=== PATIENT | male | born 1995 ===

== ENCOUNTER 2025-08-09 10:03 | Outpatient (AMB) | payer OTHER, SELFPAY ==
--- NOTE | 2025-08-09 10:12 | A.OFFVIS_ITS ---
Intake Visit Reasons: migraine Allergies amoxicillin Allergy (Unknown, Verified 08/05/25 10:57) Unknown Medication List - Last Reconciled 08/09/25 by Mariya Mendoza MD sumatriptan succinate mg PO HPI Comments Details: 29 yr old man with h/o migraine. Currently getting 1/ wk or every 2 weeks. Sumatriptan works well in 2 hrs. They can be triggered by lack of sleep, stress He also has Clenching and TMJ and also needs lot of dental work. Usually wakes with it, and they last several hours. Also gets regular LYNNE for which he takes Excedrin. Had some breathing problems with Propranolol. Was also given Topiramate in the past but never tried it. Does not want daily prophylactic meds. Change in seasons increase his migraines. He started having migraines at the age of 15. The migraines may be triggered possibly by weather and disrupted sleep or oversleeping. Generally he gets an aura where he starts to find it hard to think and feels foggy in his head, one visual aura and sound and light sensitivity. On one occasion he had a visual aura lasting 30 min. of rainbow lights, spots in his vision followed by a severe headache. When he has a migraine he has throbbing on one side or the other or generalized with nausea, vomiting, photophobia and sonophobia lasting a half a day to whole day if not tretaed with Sumatriptan. . [facility] Medical History (Updated 08/09/25 @ 10:15 by Mariya Mendoza MD) Migraine without aura Review of Systems Const Details: Sleep:? Difficulty getting to sleep?denies.? Difficulty maintaining sleep?denies? .? Urge to move legs?denies.? Teeth grinding?denies.? Shouting or Kicking during sleep?denies.? Abnormal behavior during sleep?denies.? Excessive sleep?denies.? Snoring?denies.? Daytime sleepiness?denies.? ?? General/Constitutional:? Change in appetite?denies.? Chills?denies.? Fatigue?denies.? Fever?denies .? Weight gain?denies.? Weight loss?denies.? ?? Ophthalmologic:? Blurred vision?denies.? Diminished visual acuity?denies.? ?? ENT:? Stuffiness?denies.? Decreased hearing?denies.? Dry mouth?denies.? Ear pain?denies.? Nosebleed?denies.? Ringing in the ears?denies.? Sinus pain?denies .? Sore throat?denies.? Swollen glands?denies.? ?? Endocrine:? Cold intolerance?denies.? Excessive thirst?denies.? Frequent urination? denies.? Heat intolerance?denies.? ?? Respiratory:? Shortness of breath?denies.? Chest pain?denies.? Cough?denies.? ?? Breast:? Breast lump?denies.? Nipple discharge?denies.? ?? Cardiovascular:? Chest pain at rest?denies.? Chest pain with exertion?denies.? Claudication?denies.? Dizziness?denies.? Fluid accumulation in the legs?denies.? Irregular heartbeat?denies.? Palpitations?denies.? ?? Gastrointestinal:? Abdominal pain?denies.? Constipation?denies.? Diarrhea?denies.? Difficulty swallowing?denies.? Heartburn?denies.? Nausea?denies.? Rectal bleeding?denies.? ?? Hematology:? Easy bruising?denies.? Prolonged bleeding?denies.? ?? Genitourinary:? Frequent urination?denies.? Urgency?denies.? Incontinence?denies.? Erectile Dysfunction?denies.? ?? Musculoskeletal:? Neck pain?denies.? Back pain?denies.? Muscle aches?denies.? Painful joints?denies.? Sciatica?denies.? Weakness?denies.? ?? Podiatric:? Difficulty walking?denies.? Foot numbness?denies.? ?? Neurologic:? Difficulty swallowing?denies.? Balance difficulty?denies.? Coordination? normal.? Difficulty speaking?denies.? Dizziness?denies.? Fainting?denies.? Gait abnormality?denies.? Headache?admits.? Loss of strength?denies.? Loss of use of extremity?denies.? Low back pain?denies.? Memory loss?denies.? Seizures?denies.? Tics?denies.? Tingling/Numbness?denies.? Transient loss of vision?denies.? Tremor?denies.? ?? Psychiatric:? Anxiety?denies.? Auditory/visual hallucinations?denies.? Delusions?denies .? Depressed mood?denies.? Stressors?admits.? Substance abuse?denies.? Suicidal thoughts?denies.? ?? Physical Exam Neuro Other: HEAD:?normocephalic,?atraumatic.? EYES:?sclera non-icteric,?conjunctiva clear.? EARS:?auditory canal clear,?tympanic membrane intact, clear.? NOSE:?no lesions.? ORAL CAVITY:?gums normal,?mucosa moist,?no lesions.? THROAT:?clear.? NECK/THYROID:?no cervical lymphadenopathy,?thyroid normal,?neck supple, full range of motion,?no carotid bruit.? SKIN:?no rashes,?no significant birthmarks.? HEART:?S1, S2 normal,?no murmurs.? LUNGS:?clear anteriorly and posteriorly.? CHEST:?no gross rib deformity,?clear to auscultation.? BACK:?normal exam of spine.? EXTREMITIES:?no edema.? PERIPHERAL PULSES:?normal.? PSYCH:?alert, oriented,?cognitive function intact,?cooperative with exam.? Neurological: ? Abnormal neurological findings:??none.? Mental Status:?alert and oriented X 3,?Normal attention, orientation, memory and affect.? Cranial Nerves:?Pupils are equal, round and reactive to light. Fundoscopy shows normal disc bilaterally. External occular muscles are intact. Visual smith are full, no ptosis. Face is symmetrical, no facial weakness or droop. Facial sensations are normal. Tongue protrudes in midline. Palate elevates symmetrically. Shoulder shrugging is normal..? Motor Examination:?Normal muscle tone, bulk and strength,?No atrophy or fasciculations,?No drift of the extended upper extremities,?Deep tendon reflexes are 2+?,?Plantars are flexor?.? Straight Leg Raising:?90 degrees.? Sensory Exam:?Normal light touch, temperature, pinprick, vibration and joint-position sensations?,?Rhomberg sign is absent.? Coordination:?no ataxia,?no titubation,?mphnzp-bb-ebfa, pdgb-nqzn-euio test and rapid alternating movements were normal.? Gait Exam:?Within normal limits.? Cerebellar Signs:?Fzrxdv-cr-bwnx and syak-uw-hegl is normal,?no dysdiadochokinesia?.? Extrapyramidal System:?No tremor, rigidity with normal facial expressions,?No bradykinesia, no bradyphrenia. Normal arm swing and posture. No propulsion or retropulsion.? Speech:?Normal,?no dysphasia or dysarthria..? Mini Mental Status Exam: ? Level of Consciousness:?Alert.? Orientation:?Knows correct year, month, date, day and season,?Knows correct city, county and state. Knows correct location and floor.? Registration:?Able to register 3 objects.? Attention:?Serial 7's performed accurately.? Recall:?Able to recall 3 out of 3 objects.? Language:?Normal spontaneous speech, fluency, repetition,naming, comprehension, reading and writing.? Total Score ?30/30.? Assessment & Plan Assessment & Plan (1) Migraine with aura: Code(s): G43.109 - Migraine with aura, not intractable, without status migrainosus Category: Medical (2) TMJ syndrome: Code(s): M26.629 - Arthralgia of temporomandibular joint, unspecified side Category: Medical Plan Continue Sumatriptan PRN. Consider Botox for TMJ and migraine Medications: New sumatriptan succinate 100 mg PO Q2-4H 9 tabs 8RF migraine with aura 30 days MDD 200mg upto 2tabs/ 24 hrs Coding Level of Care Code New Pt Level 4 (33713) Diagnoses Migraine with aura G43.109 TMJ syndrome M26.629
--- OUTSIDE RECORDS SUMMARY | 2025-08-09 12:11 | XMS_ITS | Clinical Summary ---
Author Organization [facility] [address] [place] [address] [place] [phone] Phone Care Team Providers Care Puff Ironer Name Role Phone Alex Najera MD Primary Care Provider [phone] Allergies Active Allergy Reactions Criticality Noted Date Comments Amoxicillin 05/23/2016 Medications finasteride (PROPECIA) 1 mg tablet Take 1 Tablet by mouth three times a week. Active SUMAtriptan (IMITREX) 100 mg tablet Take 1 Tab by mouth as needed for Migraine. May repeat dose once after 2 hours, if needed. 05/05/2018 Active cyclobenzaprine (FLEXERIL) 5 mg tablet Take 1 tablet (5 mg total) by mouth at bedtime as needed for muscle spasms. 30 tablet 05/16/2025 07/15/20 25 Active Problems Problem Noted Date Diagnosed Date Anxiety 06/29/2016 Depression 06/29/2016 Overview (11/01/2024): Hospitalized 03/27 for depression and suicidal ideation Panic attacks 06/29/2016 Migraine 05/23/2016 Encounters Date Type Department Care Team Description 05/16/2025 2:00 PM EDT Office Visit Adult Medicine [address] [phone] Lila Gates PA Adult general medical examination (Primary Dx); Screening for diabetes mellitus; Screening cholesterol level; Marijuana use; Chest wall pain; TMJ (temporomandibular joint syndrome); Skin mole; Alopecia; Migraine without aura and without status migrainosus, not intractable from Last 3 Months Immunizations Name Administration Dates Next Due Hepatitis B Pediatric (Enger ix B; Recombivax HB) to less than 20 yo 05/04/2015 Measles 04/28/2015 Mumps 04/28/2015 Rubella 04/28/2015 Td Tetanus diptheria, preser vative free (Tenivac) 7yo and older 05/16/2025 Tdap Tetanus diptheria acell ular pertussis (Boostrix; Adacel) 7yo and older 04/28/2015 Varicella live (Varivax) 12mo and older 04/28/20 15 Surgical History Surgery Date Site/Laterality Comments TONSILLECTOMY 2001 PROCEDURE: HISTORICAL TONSILLECTOMY Medical History Medical History Date Comments Migraines DX:Migraines Depression 06/29/2016 DX:Depression Anxiety 06/29/2016 DX:Anxiety Panic attacks 06/29/2016 DX:Panic attacks Family History Medical History Relation Name Comments Other: Autism Brother No Known Problems Father Dementia Maternal Grandfather Depression Maternal Grandmother cholest susan, hypertension, alcohol, diabetes Migraines Mother depression Relation Name Status Comments Brother Alive Father Alive Maternal Grandfather Maternal Grandmother Mother Alive Social History Tobacco Use Types Packs/Day Years Used Date Smoking Tobacco: Never Smokeless Tobacco: Never Tobacco Cessation:Counseling Given: Not Answered Alcohol Use Standard Drinks/Week Comments No 0 (1 standard drink = 0.6 oz pur e alcohol) Sex and Gender Information Value Date Recorded Sex Assigned at Not on file Legal Sex Male 7:05 PM EST Gender Identity Not on file Sexual Orientation Not on file Obstetrics History Last Filed Vital Signs Vital Sign Reading Time Taken Comments Blood Pressure 121/71 05/16/2025 2:01 PM EDT Pulse 108 05/16/2025 2:01 PM EDT Temperature 36.8 C (98.2 F) 05/16/2025 2:01 PM EDT Respiratory Rate 14 05/16/2025 2:01 PM EDT Oxygen Saturation 99% 11/24/2024 2:06 PM EST Inhaled Oxygen Concentration - - Weight 68.9 kg (152 lb) 05/16/2025 2:01 PM EDT Height 177.8 cm (5' 10 ) 05/16/2025 2:01 PM EDT Body Mass Index 21.81 05/16/2025 2:01 PM EDT Plan of Treatment Upcoming Encounters Date Type Department Care Team (Late st Contact Info) Description 05/18/2026 10:30 AM EDT Office Visit Adult Medicine [address] [phone] Alex Najera MD [address], [place] Health Maintenance Due Date Last Done Comments Hepatitis B Vaccines (2 of 3 - 19+ 3-dose series) 06/01/2015 05/04/2015 Social Influencers of Health Screening 10/26/2022 Depression Screening 11/17/2024 COVID-19 Vaccine ( - 2023-2 5 season) 2025 Influenza Vaccine (#1) 2025 Cholesterol Screening (Lipid Panel) 01/26/2026 01/26/2021 DTaP,Tdap,and Td Vaccines (3 - Td or Tdap) 05/16/2035 05/16/2025, 04/28/2015 Varicella Vaccines Aged Out 04/28/2015 No longer eligible based on patient's age to complete this topic HIV Screening Completed 05/31/2024, 05/31/2024 Hepatitis C Screening Completed 05/31/2024 HIB Vaccines Aged Out No longer eligi ble based on patient's age to complete this topic HPV Vaccines Aged Out No longer eligi ble based on patient's age to complete this topic Hepatitis A Vaccines Aged Out No long er eligible based on patient's age to complete this topic IPV Vaccines Aged Out No longer eligi ble based on patient's age to complete this topic MMR Vaccines Aged Out No longer eligi ble based on patient's age to complete this topic Meningococcal ACWY Vaccine Aged Out N o longer eligible based on patient's age to complete this topic Meningococcal B Vaccine Aged Out No l onger eligible based on patient's age to complete this topic Pneumococcal Vaccine: Pediatrics (0 to 5 Years) and At-Risk Patients (6 to 49 Years) Aged Out No longer eligible b ased on patient's age to complete this topic RSV Immunization Patients Under 20 months Aged Out No longer eligible b ased on patient's age to complete this topic Procedures Procedure Name Priority Date/Time Associated Diagnosis Comments HM HEPATITIS C SCREENING Routine 05/31/2024 HIV SCREENING Routine 05/31/2024 LIPID PANEL Routine 01/26/2021 from Last 3 Months or Most Recently Relevant to Health Maintenance Results * HIV Screening (05/31/2024) HIV Screening abstracted Historical Provider HEALTH MAINTENANCE Final Result * Hepatitis C Screening (05/31/2024) Hepatitis C Screening abstracted [facility] Provider HEALTH MAINTENANCE Final Result * (ABNORMAL) Lipid panel (01/26/2021) LDL/HDL Ratio 3 0 - 4 Triglycerides 84 0 - 150 mg/dL Cholesterol 219(A) 0 - 200 mg/dL HDL 65 >=40 mg/dL LDL Cholesterol 138(A) 0 - 100 mg/dL Blood Venous blood specimen / Unknown [facility] Provider LAB BLOOD ORDERABLES [place] l Result from Last 3 Months or Most Recently Relevant to Health Maintenance Insurance [facility] [facility] Care Teams Puff Ironer Relationship Specialty Start Date End Date Alex Najera MD [address] [place] [address] PCP - General Internal Medicine 05/06/22
== END 2025-08-09 10:29 | disposition home or self-care (01) ==
LOC: HO.HSM 10:04
PROVIDERS: PCP Internal Medicine; Referring Provider Internal Medicine; Visit Provider Psychiatry & Neurology Neurology
DX: G43.109 Migraine with aura, not intractable, without status migrainosus (principal); M26.629 Arthralgia of temporomandibular joint, unspecified side
CPT/HCPCS: 99204

== ENCOUNTER → 2025-08-09 10:03 | Outpatient (BNVA) | payer OTHER, SELFPAY | PROVIDERS: PCP Internal Medicine; Referring Provider Internal Medicine; Visit Provider Psychiatry & Neurology Neurology | DX: G43.109 Migraine with aura, not intractable, without status migrainosus (principal); M26.629 Arthralgia of temporomandibular joint, unspecified side | CPT/HCPCS: 99202 ==